=== PATIENT | female | born 1980 | race Caucasian/White ===

== ENCOUNTER 2020-08-21 15:12 | Outpatient (CLI) | payer BC ==
--- NOTE | 2020-08-21 15:56 | MMO ---
Left Breast MAMMO [facility] LT+RON[facility]. CLINICAL HISTORY: Patient is 40 years old and is seen for additional evaluation requested from prior study. The patient has the following family history of breast cancer: great aunt, malignant (generic) and maternal grandmother, at age 46, malignant (generic). The patient has no personal history of cancer. VIEWS: The views performed were: left craniocaudal spot compression with tomosynthesis; left mediolateral oblique spot compression with tomosynthesis; and left mediolateral with tomosynthesis. FILMS COMPARED: The present examination has been compared to prior imaging studies performed at [facility] on 07/31/2020, and at [facility] on 08/21/2020. This study has been interpreted with the assistance of computer-aided detection. MAMMOGRAM FINDINGS: No mammo or sono evidence of mass is seen in the left upper outer breast. US shows a 8mm cyst at 2:00 retroaerolar region. There are no suspicious masses, suspicious calcifications, or new areas of architectural distortion. IMPRESSION: THERE IS NO MAMMOGRAPHIC EVIDENCE OF MALIGNANCY. A ROUTINE FOLLOW-UP MAMMOGRAM IN 1 YEAR IS RECOMMENDED. THE RESULTS OF THIS EXAM WERE SENT TO THE PATIENT. ACR BI-RADS Category 2 - Benign finding MAMMOGRAPHY NOTE: 1. A negative mammogram report should not delay a biopsy if a dominant of clinically suspicious mass is present. 2. Approximately 10% to 15% of breast cancers are not detected by mammography. 3. Adenosis and dense breasts may obscure an underlying neoplasm. Reported by: COREY TANNER MD Electonically Signed: [id number]
--- NOTE | 2020-08-21 16:06 | ULT ---
LEFT BREAST ULTRASOUND: 08/21/20 HISTORY: Abnormal mammogram. FINDINGS: Correlation is made with mammograms of 07/31/20 and 08/21/20. FINDINGS: Sonographic evaluation of the left upper outer breast demonstrates no mass to correspond to the proba ble abnormality on the mammogram of 07/31/20. There is an 8 mm cyst at the 2:00 position of the retroareolar left breast close to the nipple. IMPRESSION: BIRADS 2: Benign Finding(s) Routine annual screening mammography (for women over age 40). POS: OFF
== END 2020-08-21 15:13 | disposition home or self-care (01) ==
LOC: BICMAMMO 15:12
PROVIDERS: ATTEND Student in an Organized Health Care Education/Training Program
DX: N63.20 Unspecified lump in the left breast, unspecified quadrant (principal)
CPT/HCPCS: G0279